=== PATIENT | male | born 1955 | race Caucasian/White ===

== ENCOUNTER 2017-10-05 19:08 | Outpatient (CLI) | payer OTHER ==
[2014-09-27 20:10] VITALS: BP 139/95
[2017-10-05 20:00] LABS: BASOPHILS % 0.8 (0.0-1.5); MEAN CORPUSCULAR HEMOGLOBIN 29.1 pg (28.0-34.0); MEAN CORPUSCULAR VOLUME 86.7 fl (80.0-100.0); MONOCYTES % 6.2 % (0.0-11.0); NEUTROPHILS # 3.7 # k/uL (1.4-7.7)
[2017-10-05 20:15] LABS: eGFR (African) > 60; eGFR (Non-African) > 60
== END 2017-10-05 19:10 ==
LOC: LAB 19:08
PROVIDERS: ATTEND Family Medicine
DX: G45.9 Transient cerebral ischemic attack, unspecified (principal)
CPT/HCPCS: 80053; 85025

== ENCOUNTER 2017-10-06 14:06 | Outpatient (CLI) | payer OTHER ==
[2014-09-27 20:10] VITALS: BP 139/95
--- NOTE | 2017-10-06 18:36 | Diagnostic Imaging Report ---
AMRITA PUGA [facility] [address] [facility].[address] [id number] Report Submission Date: Oct 06, 2017 4:41:15 PM CDT Patient Study Name: MAILE CROW Date: Oct 06, 2017 2:20:28 PM CDT Modality Type: CT\SR Gender: M Description: CTA NECK W/WO CONTRAST : 55 Institution: [facility] Physician: AMRITA PUGA CTA head and neck History: TIA Technique: Helically acquired images were obtained from the aortic arch to the vertex of the skull following IV contrast using a CTA protocol. Findings: The contrast bolus is not optimally timed. There is no contrast within the arch or proximal great vessels. However, there is a classic three- vessel configuration of the aortic arch. The vertebral arteries are patent. The common carotid arteries are patent. The carotid bifurcations are widely patent with no carotid stenosis or appreciable atherosclerotic plaquing. The vertebrobasilar system is patent. Bilateral posterior communicating arteries are present. Internal carotid arteries are patent from the skullbase to the supraclinoid region. Anterior, middle and posterior cerebral artery distributions are patent. No intracranial arterial stenosis or intracranial aneurysms are appreciated. Lung apices are clear. 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 The ascending thoracic aorta is borderline aneurysmal at 4.4 cm. Mucous retention cysts of the bilateral maxillary sinuses are present. Impression: The ascending thoracic aorta is borderline aneurysmal at 4.4 cm. There is no carotid stenosis. There is no intracranial arterial stenosis. No intracranial arterial abnormalities are noted. Electronically signed on Oct 06, 2017 4:41:15 PM CDT by: Lita PALM
--- NOTE | 2017-10-06 18:36 | Diagnostic Imaging Report ---
AMRITA PUGA [facility] [address] [facility].[address] [id number] Report Submission Date: Oct 06, 2017 4:41:15 PM CDT Patient Study Name: MAILE CROW Date: Oct 06, 2017 2:20:28 PM CDT Modality Type: CT\SR Gender: M Description: CTA NECK W/WO CONTRAST : 55 Institution: [facility] Physician: AMRITA PUGA CTA head and neck History: TIA Technique: Helically acquired images were obtained from the aortic arch to the vertex of the skull following IV contrast using a CTA protocol. Findings: The contrast bolus is not optimally timed. There is no contrast within the arch or proximal great vessels. However, there is a classic three- vessel configuration of the aortic arch. The vertebral arteries are patent. The common carotid arteries are patent. The carotid bifurcations are widely patent with no carotid stenosis or appreciable atherosclerotic plaquing. The vertebrobasilar system is patent. Bilateral posterior communicating arteries are present. Internal carotid arteries are patent from the skullbase to the supraclinoid region. Anterior, middle and posterior cerebral artery distributions are patent. No intracranial arterial stenosis or intracranial aneurysms are appreciated. Lung apices are clear. 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 The ascending thoracic aorta is borderline aneurysmal at 4.4 cm. Mucous retention cysts of the bilateral maxillary sinuses are present. Impression: The ascending thoracic aorta is borderline aneurysmal at 4.4 cm. There is no carotid stenosis. There is no intracranial arterial stenosis. No intracranial arterial abnormalities are noted. Electronically signed on Oct 06, 2017 4:41:15 PM CDT by: Lita PALM
== END 2017-10-06 14:08 ==
LOC: RAD 14:06
PROVIDERS: ATTEND Family Medicine
DX: G45.9 Transient cerebral ischemic attack, unspecified (principal)
CPT/HCPCS: Q9967

== ENCOUNTER 2017-10-24 10:42 | Outpatient (CLI) | payer OTHER ==
[2014-09-27 20:10] VITALS: BP 139/95
== END 2017-10-24 10:43 ==
LOC: CARD 10:42
PROVIDERS: ATTEND Internal Medicine Cardiovascular Disease
DX: G45.9 Transient cerebral ischemic attack, unspecified (principal)

== ENCOUNTER 2018-12-14 08:26 | Outpatient (CLI) | payer OTHER ==
[2014-09-27 20:10] VITALS: BP 139/95
[2018-12-14 09:46] LABS: eGFR (Non-African) > 60
[2018-12-14 09:47] LABS: HDL 28 mg/dL (>40)
== END 2018-12-14 08:31 ==
LOC: LAB 08:26
PROVIDERS: ATTEND Family Medicine
DX: Z13.220 Encounter for screening for lipoid disorders (principal); Z12.5 Encounter for screening for malignant neoplasm of prostate
CPT/HCPCS: 36415; 80053; 80061; 84153